=== PATIENT | male | born 1985 ===

== ENCOUNTER 2018-03-03 21:24 | Emergency (ER) | payer OTHER ==
[2018-03-03 21:36] VITALS: BP 129/62; PULSE 69; RESP 20; TEMP 98.3; O2SAT 99
[2018-03-03] MEDS ORDERED: Tdap Vaccine 0.5 ml Vial (10-64 yrs) IM ONE ×2 (22:37→22:44)
[2018-03-03] MEDS ORDERED: Lidocaine 1% Inj (20ml) INFIL ONE (22:38)
[2018-03-03] MEDS ORDERED: Lidocaine Hydrochloride 5 ML INJ ONE (22:43)
--- NOTE | 2018-03-03 23:22 | C.PDOC ---
History Of Present Illness 32 year old male presents to the ED for an evaluation of laceration to the head sustained when he was playing basketball around 1999. Patient states another player bumped into him and elbowed him on the right side of the head, which caused him to fall. Patient denies any LOC, further head injury, or any other injuries. Denies headache, nausea, vomiting, dizziness, Time Seen by Provider: 03/03/18 21:57 Chief Complaint (Nursing): Abnormal Skin Integrity History Per: Patient History/Exam Limitations: no limitations Onset/Duration Of Symptoms: Hrs Current Symptoms Are (Timing): Still Present Location Of Injury: Right: Head (laceration ) Quality Of Symptoms: Painful Past Medical History Reviewed: Historical Data, Nursing Documentation, Vital Signs Vital Signs: Last Vital Signs Temp 98.3 F 03/03/18 21:32 Pulse 69 03/03/18 21:32 Resp 20 03/03/18 21:32 BP 129/62 03/03/18 21:32 Pulse Ox 99 03/03/18 21:32 - Medical History PMH: No Chronic Diseases Surgical History: No Surg Hx Family History: States: No Known Family Hx - Social History Hx Alcohol Use: No Hx Substance Use: No - Immunization History Hx Tetanus Toxoid Vaccination: No Hx Influenza Vaccination: No Hx Pneumococcal Vaccination: No Review Of Systems ENT: Negative for: Ear Pain Gastrointestinal: Negative for: Nausea, Vomiting Musculoskeletal: Negative for: Neck Pain, Back Pain Skin: Positive for: Other (laceration to the right side of the head ) Neurological: Negative for: Headache, Dizziness Physical Exam - Physical Exam Appears: Non-toxic Skin: Warm, Dry Head: Normacephalic, Laceration (1.5cm horizontal laceration to the right buddhist area proximal to the right ear, no active bleeding), No Other ((-) swan's sign (-) hematoma ) Eye(s): bilateral: Normal Inspection, PERRL, EOMI Ear(s): Bilateral: Normal (no hemotympanum) Neck: Normal ROM, No Midline Cervical Tenderness, No Paracervical Tenderness Chest: Symmetrical Cardiovascular: Rhythm Regular Respiratory: Normal Breath Sounds, No Rales, No Rhonchi, No Wheezing Extremity: Normal ROM, No Tenderness, No Swelling Extremity: Bilateral: Atraumatic Neurological/Psych: Oriented x3, Normal Speech, Normal Cognition, Normal Cranial Nerves, Normal Motor, Normal Sensation Gait: Steady ED Course And Treatment O2 Sat by Pulse Oximetry: 99 (RA) Pulse Ox Interpretation: Normal Laceration - Laceration Repair scalp Wound Length (In cm): 1.5 Description Of Wound: Linear Wound Cleansed With: Sterile Saline Anesthesia: Lidocaine 1% Wound Examination: Irrigated With Saline, No FB With Wound Exploration Wound Closure: Agustin (#4) Wound Complexity: Simple Medical Decision Making Medical Decision Making: Orders: - Tetanus vaccination Patient with 1.5cm horizontal laceration to the right buddhist proximal to the ear. Laceration repaired using agustin without difficulty. Patient tolerated procedure well. Disposition Counseled Patient/Family Regarding: Diagnosis, Need For Followup, Rx Given - Disposition Referrals: [facility] [Outside] Disposition: HOME/ ROUTINE Disposition Time: 23:18 Condition: GOOD Additional Instructions: Donnell que alguien lo despierte 2-3 veces meek la noche para asegurarse de que se despierte con facilidad. Tenga cuidado con cualquier comportamiento inusual, letargo, convulsiones. dolor de jamie intenso. vmitos. Si presenta alguno de estos sntomas, regrese a ER de inmediato. Eliminacin de sutura en 10 mcgovern. Seguimiento en la clnica mdica. Tylenol para el dolor si es necesario. Have someone wake you 2-3 times during the evening to make sure you wake easily. Watch out for any unusual behavior, lethargy, seizure. severe headache. vomiting. If any of these symptoms, return to ER right away. Suture removal in 10 days. Follow up in medical clinic. Tylenol for pain if needed. 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 - Scribe Statement The provider has reviewed the documentation as recorded by the Olimpia Preston All medical record entries made by the Scribe were at my direction and personally dictated by me. I have reviewed the chart and agree that the record accurately reflects my personal performance of the history, physical exam, medical decision making, and the department course for this patient. I have also personally directed, reviewed, and agree with the discharge instructions and disposition.
== END 2018-03-03 23:27 | disposition home or self-care (01) ==
LOC: C.ER 21:24
DX: S01.01XA Laceration without foreign body of scalp, initial encounter (principal); W03.XXXA Other fall on same level due to collision with another person, initial encounter; Y93.67 Activity, basketball; Y92.310 Basketball court as the place of occurrence of the external cause; Z23 Encounter for immunization

== ENCOUNTER 2018-03-15 19:05 | Emergency (ER) | payer OTHER ==
[2018-03-15 19:42] VITALS: BP 117/77; PULSE 83; RESP 14; TEMP 98.4; O2SAT 98
--- NOTE | 2018-03-15 20:04 | C.PDOC ---
History Of Present Illness 32 year old male presents to the ER for staple removal s/p laceration repair on 03/04/18. Denies fever, headache, dizziness, vomiting, bleeding, redness, discharge, or tenderness. Time Seen by Provider: 03/15/18 19:49 Chief Complaint (Nursing): Suture/Staple Removal History Per: Patient History/Exam Limitations: no limitations Onset/Duration Of Symptoms: Days Ago (03/04/18) Current Symptoms Are (Timing): Still Present Location Of Injury: Right: Head Quality Of Symptoms: denies: Painful, Itching, Swollen, Draining Recent travel outside of the [place]: No Past Medical History Reviewed: Historical Data, Nursing Documentation, Vital Signs Vital Signs: Last Vital Signs Temp 98.4 F 03/15/18 19:39 Pulse 83 03/15/18 19:39 Resp 14 03/15/18 19:39 BP 117/77 03/15/18 19:39 Pulse Ox 98 03/15/18 19:39 Family History: States: Unknown Family Hx - Social History Hx Alcohol Use: No Hx Substance Use: No - Immunization History Hx Tetanus Toxoid Vaccination: No Hx Influenza Vaccination: No Hx Pneumococcal Vaccination: No Review Of Systems Except As Marked, All Systems Reviewed And Found Negative. Constitutional: Negative for: Fever, Chills Skin: Positive for: Other (Agustin in place) Physical Exam - Physical Exam Appears: Non-toxic, No Acute Distress Skin: Warm, Dry Head: Normacephalic, Other (Agustin in place on right parietal scalp area, no bleeding, redness, discharge, or tenderness.) Eye(s): bilateral: Normal Inspection, EOMI Nose: Normal Chest: Symmetrical Respiratory: No Accessory Muscle Use Neurological/Psych: Oriented x3, Normal Speech, Normal Cognition ED Course And Treatment O2 Sat by Pulse Oximetry: 98 (Room air) Pulse Ox Interpretation: Normal Progress Note: Patient tolerated staple removal without any difficulty, he is resting comfortably in the ER in no acute distress, vitals are stable, will discharge home with instructions to follow up with PMD. 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 - Scribe Statement The provider has reviewed the documentation as recorded by the Scribe Chico Watt All medical record entries made by the Scribe were at my direction and personally dictated by me. I have reviewed the chart and agree that the record accurately reflects my personal performance of the history, physical exam, med ica decision making, and the department course for this patient. I have also personally directed, reviewed, and agree with the discharge instructions and disposition.
== END 2018-03-15 20:25 | disposition home or self-care (01) ==
LOC: C.ER 19:05
DX: Z48.02 Encounter for removal of sutures (principal)